=== PATIENT | female | born 1975 | race Caucasian/White ===

== ENCOUNTER 2017-08-03 13:17 | Outpatient (CLI) | payer OTHER | END 2017-08-03 13:49 | disposition home or self-care (01) | LOC: MAMO-SONO 13:17 | DX: R10.2 Pelvic and perineal pain (principal); N64.0 Fissure and fistula of nipple; Z12.31 Encounter for screening mammogram for malignant neoplasm of breast ==

== ENCOUNTER → 2018-04-23 | Outpatient (CLI) | payer OTHER | END | disposition home or self-care (01) | LOC: MAMO-SONO 07:45 → SONOGRAMA 08:19 | DX: R10.2 Pelvic and perineal pain (principal) ==

== ENCOUNTER → 2018-12-12 | Outpatient (CLI) | payer OTHER | END | disposition home or self-care (01) | LOC: MAMO-SONO 11:00 | DX: Z12.31 Encounter for screening mammogram for malignant neoplasm of breast (principal); N60.11 Diffuse cystic mastopathy of right breast; N60.12 Diffuse cystic mastopathy of left breast ==

== ENCOUNTER 2021-01-05 16:20 | Outpatient (CLI) | payer OTHER | END 2021-01-05 17:00 | disposition home or self-care (01) | LOC: RAD 16:20 | DX: J45.30 Mild persistent asthma, uncomplicated (principal) ==

== ENCOUNTER 2021-03-02 09:23 | Outpatient (CLI) | payer OTHER | END 2021-03-02 09:34 | disposition home or self-care (01) | LOC: MAMO-SONO 09:23 | PROVIDERS: ATTEND Obstetrics & Gynecology Obstetrics | DX: N60.11 Diffuse cystic mastopathy of right breast (principal); N60.12 Diffuse cystic mastopathy of left breast; N64.0 Fissure and fistula of nipple; Z12.31 Encounter for screening mammogram for malignant neoplasm of breast; R10.2 Pelvic and perineal pain ==

== ENCOUNTER 2023-08-15 08:16 | Outpatient (CLI) | payer OTHER | END 2023-08-15 08:27 | disposition home or self-care (01) | LOC: RAD 08:16 | DX: S60.912A Unspecified superficial injury of left wrist, initial encounter (principal); S59.912A Unspecified injury of left forearm, initial encounter; S40.922A Unspecified superficial injury of left upper arm, initial encounter; M54.2 Cervicalgia ==